=== PATIENT | female | born 1960 | race Caucasian/White ===

== ENCOUNTER 2018-10-18 03:35 | Emergency (ER) | payer MEDICARE ==
[~2018-10-18] VITALS: Ht 167.6 cm; Wt 87.1 kg
[2018-10-18 03:39] VITALS: Ht 167.6 cm; Wt 87.1 kg
[2018-10-18 04:21] LABS: UDS - AMPHET NEGATIVE QUAL (NEGATIVE); UDS - BARB NEGATIVE QUAL (NEGATIVE); UDS - BENZO NEGATIVE QUAL (NEGATIVE); UDS - COCAINE NEGATIVE QUAL (NEGATIVE); UDS - OPIATE NEGATIVE QUAL (NEGATIVE); UDS - PCP NEGATIVE QUAL (NEGATIVE); UDS - THC NEGATIVE QUAL (NEGATIVE)
[2018-10-18 04:24] LABS: BASOPHILS 0.3 % (0-2); EOSINOPHILS 2.2 % (0-7); HEMATOCRIT 50.2 % (36.0-48.0); HEMOGLOBIN 16.9 g/dL (12-16); IMMATURE GRANULOCYTES 0.4 % (0-5); LYMPHOCYTES 27.1 % (15-50); MCH 29.6 pg (26.0-34.0); MCHC 33.7 g/dL (31.0-37.0); MCV 87.9 fL (80.0-100.0); MEAN PLATELET VOLUME 11.7 fL (7.4-10.4); MONOCYTES 7.5 % (2-11); NEUTROPHILS 62.5 % (40-80); PLATELET COUNT 210 10x3/uL (130-400); RBC 5.71 10x6/uL (4.00-5.40); RDW 14.9 % (11.5-14.5); WBC 10.9 10x3/uL (4.8-10.8)
[2018-10-18 04:37] LABS: APPEARANCE CLEAR (CLEAR); BILIRUBIN NEGATIVE (NEGATIVE); COLOR YELLOW (YELLOW); GLUCOSE NEGATIVE (NEGATIVE); KETONE NEGATIVE (NEGATIVE); NITRITE NEGATIVE (NEGATIVE); PROTEIN NEGATIVE (NEGATIVE); SPECIFIC GRAVITY 1.005 (1.005-1.020); UROBILINOGEN NORMAL (NORMAL)
[2018-10-18 04:40] LABS: ALKALINE PHOSPHATASE 114 U/L (46-116); ALT (SGPT) 30 U/L (10-68); BILIRUBIN - TOTAL 0.41 mg/dL (0.2-1.3); CALC OSMOLALITY 279 mosm/kg (275-300); CALCIUM 9.6 mg/dL (8.5-10.1); CARBON DIOXIDE 27.2 mmol/L (21.0-32.0); CHLORIDE - SERUM 105 mmol/L (98-107); CREATININE - SERUM 0.7 mg/dL (0.6-1.3); GLUCOSE 88 mg/dL (74-106); MAGNESIUM - SERUM 2.2 mg/dL (1.8-2.4); PROTEIN - SERUM 7.5 g/dL (6.4-8.2); SODIUM 141 mmol/L (136-145); UREA NITROGEN 12 mg/dL (7-18); eGFR NON AFRICAN AMERICAN > 90 mL/min (90-120)
[2018-10-18 05:48] VITALS: BP 124/87
== END 2018-10-18 05:48 | disposition home or self-care (01) ==
LOC: D.ER 03:35
PROVIDERS: Emergency Medicine
DX: F10.129 Alcohol abuse with intoxication, unspecified (principal)

== ENCOUNTER 2018-10-18 07:39 | Emergency (ER) | payer MEDICARE ==
[~2018-10-18] VITALS: Ht 167.6 cm; Wt 87.7 kg
[2018-10-18 07:39] VITALS: BP 148/95; Ht 167.6 cm; Wt 87.7 kg
--- NOTE | 2018-10-18 08:51 | NUR ---
DR. JACOBO NOTIFIED AND 1:1 SITTER OBSERVATION ORDERED. SITTER AT BEDSIDE. NOTIFIED CHARGE NURSE AND ATTENDING IN REGARDS TO ASSESSMENT FINDINGS. RESOURCES GIVEN TO PT AND SAFETY PLAN INTIATED.
== END 2018-10-18 12:45 ==
LOC: D.ER 07:39
DX: R45.851 Suicidal ideations (principal); F23 Brief psychotic disorder; F31.9 Bipolar disorder, unspecified